=== PATIENT | male | born 1950 | race Caucasian/White ===

== ENCOUNTER → 2016-09-20 | Outpatient (CLI) | payer MEDICARE, OTHER ==
[~2016-09-20] MED LIST: ADULT LOW DOSE81 MG PO; ALLERGY10 M1 PO; FINASTERIDE5 MG PO; FLOMAX 0.4 MG0.4 MG PO; GLUCOPHAGE 500500 MG PO; HYDRALAZINE HCL50 MG PO; HYDROCHLOROTHIA25 MG PO; IMDUR ER TAB 6060 MG PO; KLOR-CON 1010 MEQ PO; LIPITOR TAB 2020 MG PO; LOSARTAN POTAS100 MG PO; MAGOX 400400 MG PO; MELOXICAM7.5 MG PO; MOBIC7.5 MG PO; NEURONTIN 100100 MG PO; NORVASC 5 MG TAB5 MG PO; NOVOLOG MI100 UNIT/1 SQ; PLAVIX 75 MG TA75 MG PO; PROTONIX 40 MG40 M1 PO; SILVER SULFADIA85 GM TP; TYLENOL 325MG325 MG PO; VITAMIN D32000 UNI1 PO; VOLTAREN100 GM TP; ZOFRAN ODT 4 MG4 MG PO
== END ==
LOC: HEART CORB 08-11 08:30
DX: I25.10 Atherosclerotic heart disease of native coronary artery without angina pectoris (principal); R07.2 Precordial pain
CPT/HCPCS: 78452; A9502; J2785